=== PATIENT | male | born 2000 | race Caucasian/White ===

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

== ENCOUNTER 2018-03-18 01:11 | Emergency (ER) | payer OTHER ==
[~2018-03-18] VITALS: Ht 177.8 cm; Wt 76.6 kg
[2018-03-18 03:05] LABS: HEMATOCRIT 44.1 % (38.0-50.0); HEMOGLOBIN 15.7 G/DL (12.5-16.6); MCH 30.3 PG (29.0-34.0); MCHC 35.6 G/DL (30.0-36.0); PLATELET COUNT 221 K/uL (156-360); RBC DIS.WIDTH-CV 11.9 % (11.8-14.6); RBC DIS.WIDTH-SD 36.5 % (39-53); RED BLOOD COUNT 5.19 M/uL (4.00-5.50); WHITE BLOOD COUNT 7.7 K/uL (4.1-10.2)
[2018-03-18 03:09] LABS: ALBUMIN 4.7 g/dL (3.2-4.8)
[2018-03-18 03:10] LABS: CHLORIDE 103 mEq/L (99-109); SODIUM 136 mEq/L (136-147)
[2018-03-18 03:12] LABS: GLUCOSE 259 mg/dL (70-99); TOTAL PROTEIN 6.9 g/dL (6.4-8.3)
[2018-03-18 03:14] LABS: TOTAL BILIRUBIN 0.8 mg/dL (0.0-1.0)
[2018-03-18 03:15] LABS: ALKALINE PHOSPHATASE 78 IU/L (3-129); SERUM ETHYL ALCOHOL < 10 mg/dL
[2018-03-18 03:16] LABS: CREATININE 1.2 mg/dL (0.6-1.3); GFR ESTIMATE (CALCULATED) > 59 mL/min/ (58.99-99999)
[2018-03-18 03:17] LABS: AST (GOT) 17 IU/L (2-34); UREA NITROGEN (BUN) 17 mg/dL (9-23)
[2018-03-18 03:19] LABS: ALT (GPT) 9 IU/L (3-49)
[2018-03-18 03:32] VITALS: BP 131/95
== END 2018-03-18 03:35 | disposition home or self-care (01) ==
LOC: EME 01:11
PROVIDERS: Emergency Medicine
DX: F33.9 Major depressive disorder, recurrent, unspecified (principal); E11.9 Type 2 diabetes mellitus without complications; G43.909 Migraine, unspecified, not intractable, without status migrainosus; F90.9 Attention-deficit hyperactivity disorder, unspecified type; F41.9 Anxiety disorder, unspecified; F32.9 Major depressive disorder, single episode, unspecified; Z79.4 Long term (current) use of insulin; Z96.41 Presence of insulin pump (external) (internal); Z86.79 Personal history of other diseases of the circulatory system
CPT/HCPCS: 80048; 80053; 85027; 90839; 99281; 99283; G0480

== ENCOUNTER 2018-04-03 21:43 | Emergency (ER) | payer OTHER ==
[~2018-04-03] VITALS: Ht 177.8 cm; Wt 74.3 kg
[2018-04-03 23:45] LABS: HEMATOCRIT 44.4 % (38.0-50.0); HEMOGLOBIN 16.3 G/DL (12.5-16.6); MCH 30.5 PG (29.0-34.0); MCHC 36.7 G/DL (30.0-36.0); MCV 83.1 FL (86-99); PLATELET COUNT 240 K/uL (156-360); RBC DIS.WIDTH-CV 11.5 % (11.8-14.6); RBC DIS.WIDTH-SD 34.7 % (39-53); RED BLOOD COUNT 5.34 M/uL (4.00-5.50); WHITE BLOOD COUNT 8.7 K/uL (4.1-10.2)
[2018-04-03 23:59] LABS: CHLORIDE 105 mEq/L (99-109); POTASSIUM 3.6 mEq/L (3.7-5.4); SODIUM 140 mEq/L (136-147)
[2018-04-04 00:01] LABS: GLUCOSE 192 mg/dL (70-99)
[2018-04-04 00:05] LABS: CREATININE 1.2 mg/dL (0.6-1.3); GFR ESTIMATE (CALCULATED) > 59 mL/min/ (58.99-99999)
[2018-04-04 00:06] LABS: UREA NITROGEN (BUN) 18 mg/dL (9-23)
[2018-04-04 00:14] LABS: APPEARANCE CLEAR ((CLEAR)); BILIRUBIN NEGATIVE; BLOOD NEGATIVE; COLOR YELLOW ((YELLOW)); GLUCOSE (STRIP) >=500; KETONES 20; LEUKOCYTES NEGATIVE; NITRITE NEGATIVE; PROTEIN (STRIP) 100; SPECIFIC GRAVITY 1.029 (1.000-1.030); UROBILINOGEN 0.2 MG/DL (0.2-1.0)
[2018-04-04 00:59] LABS: BACTERIA NONE SEEN /HPF; EPITHELIAL CELLS NONE SEEN /HPF; MUCUS TRACE /LPF; RED BLOOD CELLS 0-5 /HPF (0-5); WHITE BLOOD CELLS 0-5 /HPF (0-5)
[2018-04-04 01:06] LABS: CREATINE KINASE 118 IU/L (1-294)
[2018-04-04] MEDS ORDERED: VISTARIL50 MG PO (01:15)
[2018-04-04 01:41] VITALS: BP 126/89
[2018-04-04 09:29] LABS: LYME DISEASE SEROLOGY SCREEN NEGATIVE (NEGATIVE)
== END 2018-04-04 01:41 | disposition home or self-care (01) ==
LOC: EME 21:43
PROVIDERS: Physician Assistant
DX: R20.2 Paresthesia of skin (principal); G47.00 Insomnia, unspecified; F41.0 Panic disorder [episodic paroxysmal anxiety]; E86.0 Dehydration; R03.0 Elevated blood-pressure reading, without diagnosis of hypertension; E11.9 Type 2 diabetes mellitus without complications; Z79.4 Long term (current) use of insulin; F90.9 Attention-deficit hyperactivity disorder, unspecified type; F32.9 Major depressive disorder, single episode, unspecified
CPT/HCPCS: 80048; 81003; 82550; 82607; 84443; 85027; 86618; 99281; 99284; Q0177